=== PATIENT | female | born 1985 | race Caucasian/White ===

== ENCOUNTER 2021-10-26 16:09 | Inpatient (IN) | payer OTHER ==
[~2021-10-26] VITALS: Ht 172.7 cm; Wt 115.2 kg
[2021-10-26] MEDS ORDERED: OXYTOCIN 20 UNITS in LACTATED RINGERS 1,000 ML IV SCH (16:45)
[2021-10-26] MEDS ORDERED: METHYLERGONOVINE 0.2 MG/ML AMP IM PRN (16:45)
[2021-10-26] MEDS ORDERED: ONDANSETRON 4 MG/2 ML VIAL IVP PRN (16:45)
[2021-10-26] MEDS ORDERED: CARBOPROST 250 MCG/ML AMP IM PRN (16:45)
[2021-10-26] MEDS: LACTATED RINGERS 1,000 ML IV SCH ×2 (17:13→18:10)
[2021-10-26 17:47] LABS: BASOPHILS % (AUTO) 0.1 % (0.0-2.0); EOSINOPHILS # (AUTO) 0.1 K/uL (0-0.4); EOSINOPHILS % (AUTO) 0.5 % (0.0-4.0); HEMATOCRIT 35.6 % (36-48); HEMOGLOBIN 11.6 g/dL (12.0-16.0); LYMPHOCYTES # (AUTO) 1.9 K/uL (2.5-16.5); LYMPHOCYTES % (AUTO) 15.1 % (20.5-51.1); MEAN CORPUSCULAR HEMOGLOBIN 26 pg (27-31); MEAN CORPUSCULAR HGB CONC 33 g/dL (33-37); MEAN CORPUSCULAR VOLUME 80.9 fL (80-94); MONOCYTES # (AUTO) 0.7 K/uL (0.8-1.0); MONOCYTES % (AUTO) 5.3 % (1.7-9.3); NEUTROPHILS # (AUTO) 9.9 K/uL (1.8-7.7); PLATELET COUNT (AUTO) 237 K/uL (140-450); RED BLOOD CELL COUNT(AUTO) 4.41 MIL/uL (4.20-5.40); RED CELL DISTRIBUTION WIDTH 16.3 % (11.6-13.7); WHITE BLOOD COUNT (AUTO) 12.5 K/uL (4.8-10.8)
[2021-10-26 18:02] LABS: PROTHROMBIN TIME 9.5 secs (10.8-13.4)
[2021-10-26 18:18] LABS: BILIRUBIN,URINE NEGATIVE (NEGATIVE); BLOOD, URINE TRACE-I (NEGATIVE); COLOR,URINE YELLOW (YELLOW); LEUKOCYTE ESTERASE ,URINE TRACE (NEGATIVE); NITRITE, URINE NEGATIVE (NEGATIVE); PH,URINE 5.5 (5.0-9.0); UGLUCOSE NEGATIVE (NEGATIVE)
[2021-10-26 18:25] VITALS: BP 128/84
[2021-10-26] MEDS ORDERED: ROPIVACAINE 0.2%/NS PREMIX 200 ML EPI ONE (18:32)
[2021-10-26 18:56] LABS: APPEARANCE,URINE HAZY (CLEAR)
[2021-10-26] MEDS ORDERED: ROPIVACAINE 0.2%/NS PREMIX 100 ML EPI SCH (19:00)
[2021-10-26] MEDS ORDERED: OXYTOCIN 20 UNITS/LR PREMIX 1,000 ML IV ONE (19:20)
[2021-10-26] MEDS ORDERED: PROMETHAZINE 25 MG/ML VIAL IVP PRN (19:40)
[2021-10-26] MEDS ORDERED: NALBUPHINE 10 MG/ML AMP IVP PRN (19:40)
[2021-10-26 20:42] LABS: RBC,URINE 0-5 /HPF (0-5); WBC,URINE 0-5 /HPF (0-5)
[2021-10-27] MEDS: LACTATED RINGERS 1,000 ML IV SCH ×2 (01:10→07:06)
[2021-10-27] MEDS ORDERED: OXYTOCIN 10 UNITS/ML VIAL IM PRN (06:55)
[2021-10-27] MEDS ORDERED: TEMAZEPAM 15 MG CAP PO PRN (06:55)
[2021-10-27] MEDS ORDERED: oxyCODONE/APAP 5/325 MG 1 TAB TAB PO PRN ×2 (06:55)
[2021-10-27] MEDS ORDERED: BENZOCAINE/MENTHOL 20%-0.5% 60 GM CAN TP PRN (06:55)
[2021-10-27] MEDS ORDERED: METHYLERGONOVINE 0.2 MG TAB PO PRN (06:55)
[2021-10-27] MEDS ORDERED: METHYLERGONOVINE 0.2 MG/ML AMP IM PRN (06:55)
[2021-10-27] MEDS ORDERED: PRETAB PO (07:25)
[2021-10-27] MEDS: IBUPROFEN 800 MG TAB PO PRN ×2 (09:53→17:20)
[2021-10-27] MEDS ORDERED: DOCUSATE SOD/SENNA 50/8.6 MG 1 TAB PO SCH (21:00)
[2021-10-28] MEDS: IBUPROFEN 800 MG TAB PO PRN ×2 (01:25→20:24)
[2021-10-28 05:33] LABS: HEMATOCRIT 34.2 % (36-48); HEMOGLOBIN 11.2 g/dL (12.0-16.0)
[2021-10-29] MEDS: IBUPROFEN 800 MG TAB PO PRN (05:51)
== END 2021-10-29 13:28 | disposition home or self-care (01) | DRG 807 ==
LOC: MLD 16:09 → OBSVTOIN 16:40 → MFCC 10-27 10:15
PROVIDERS: ADMIT Obstetrics & Gynecology; ATTEND Obstetrics & Gynecology
PROC: 10D07Z6 Extraction of Products of Conception, Vacuum, Via Natural or Artificial Opening (ICD-10-PCS; principal; 2021-10-27)
PROC: 0W8NXZZ Division of Female Perineum, External Approach (ICD-10-PCS; 2021-10-27)
PROC: 3E0R3BZ Introduction of Anesthetic Agent into Spinal Canal, Percutaneous Approach (ICD-10-PCS; 2021-10-27)
PROC: 00HU33Z Insertion of Infusion Device into Spinal Canal, Percutaneous Approach (ICD-10-PCS; 2021-10-27)
DX: O75.81 Maternal exhaustion complicating labor and delivery (principal); Z37.0 Single live birth; O69.1XX0 Labor and delivery complicated by cord around neck, with compression, not applicable or unspecified; Z20.822 Contact with and (suspected) exposure to COVID-19; O99.214 Obesity complicating childbirth; Z3A.39 39 weeks gestation of pregnancy
CPT/HCPCS: 36415; 51702; 81001; 85018; 85025; 85610; 85730; 86592; 86886; 86900; 86901; 90715; J2210; J2590; J2795